=== PATIENT | female | born 1970 | race Caucasian/White ===

== ENCOUNTER 2024-02-05 15:57 | Emergency (ER) | payer MEDICARE, SELFPAY ==
[2024-02-05 15:58] VITALS: BP 133/84; PULSE 85; RESP 20; TEMP 36.8; O2SAT 95; BMI 30.9
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
--- NOTE | 2024-02-05 16:19 | PC.NURSE ---
@ 1600 Dr. Vaughn at bedside with Shea CHANDLER, Diaz Daniel RN, and Jerrod Purvis EMT. A social and political studies professor with [place] [employer] department also arrive to bedside
[2024-02-05 16:30] VITALS: BP 134/87; PULSE 80; O2SAT 96
[2024-02-05 16:36] LABS: Basophils # 0.1 K/mm3 (0-0.2); Basophils % 1.5 % (0.1-2.0); Eosinophils # 0.2 K/mm3 (0.0-0.4); Eosinophils % 3.4 % (0.1-12.0); Hematocrit 50.6 % (37.0-47.0); Hemoglobin 16.1 g/dL (12.2-16.2); Lymphocytes # 1.6 K/mm3 (0.7-4.5); Lymphocytes % 31.2 % (10-50); Mean Corpuscular HGB Conc 31.8 g/dL (31.8-35.4); Mean Corpuscular Volume 97.6 fl (81-99); Mean Platelet Volume 7.8 fl (7.4-10.4); Monocytes # 0.3 K/mm3 (0.1-1.0); Neutrophils % 58.9 % (37.0-80.0); Platelet Count 112 K/mm3 (142-424); Red Blood Count 5.18 M/mm3 (4.20-5.40); Red Cell Distribution Width 13.8 % (11.5-17.5); White Blood Count 5.1 K/mm3 (4.8-10.8)
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
[2024-02-05 16:44] LABS: Albumin Level 3.7 g/dl (3.5-5.0); Chloride 105 mmol/L (98-107); Potassium 3.4 mmoL/L (3.5-5.1); Sodium 139 mmol/L (136-145)
[2024-02-05 16:46] LABS: Blood Urea Nitrogen 9 mg/dl (7-17)
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
[2024-02-05 16:47] LABS: Alanine Aminotransferase 13 U/L (12-78); Albumin/Globulin Ratio 1.2 (1.1-1.8); Alkaline Phosphatase 88 U/L (38-126); Anion Gap 6.4 mEq/L (5-15); Aspartate Amino Transferase 21 U/L (14-36); Bilirubin,Total 0.6 mg/dl (0.2-1.3); Calcium 8.6 mg/dl (8.4-10.2); Carbon Dioxide 31 mmol/L (22.0-30.0); Creatinine Clearance Estimated 117 mL/min (50-200); Estimated Glomerular Filt Rate 87 ml/min (>60); GFR (African American) 105 ML/MIN (>60); Glucose 89 mg/dl (74-100); Lipase 85 U/L (23-300); Total Protein,Serum 6.7 g/dl (6.3-8.2)
[2024-02-05 16:48] LABS: Activated Partial Thrombo Time 27.1 seconds (22.8-30.6); INR 1.02 (0.9-1.1); Prothrombin Time 11.4 seconds (10.1-12.5)
--- NOTE | 2024-02-05 16:48 | PC.NURSE ---
Environmental Compliance Specialist and dental practitioner at bedside with pt
[2024-02-05 17:06] LABS: Microscopic, Urine URINE MICROSCOPIC (MICROSCOPIC)
[2024-02-05 17:08] LABS: Appearance,Urine CLEAR (Clear); Bilirubin,Urine Negative (Negative); Blood, Urine 2+ (Negative); Color,Urine YELLOW (Yellow); Glucose,Urine (UA) Negative (Negative); Ketones,Urine Negative (Negative); Leukocyte Esterase,Urine 2+ (Negative); Nitrate,Urine Negative (Negative); Protein,Urine Negative (Negative)
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
[2024-02-05 17:29] LABS: Bacteria,Urine 3+ /lpf; WBC,Urine 20-50 #/hpf (0-3)
[2024-02-05 17:30] VITALS: BP 167/90; PULSE 71; O2SAT 96
[2024-02-05] MEDS: CEFTRIAXONE SODIUM 2 GM in 0.9 % SODIUM CHLORIDE 100 ML IV (17:35)
[2024-02-05] MEDS: ONDANSETRON 4MG ODT 4 MG SL (17:35)
[2024-02-05] MEDS: DOXYCYCLINE HYCL 100 MG TABLET PO (17:36)
[2024-02-05] MEDS: metroNIDAZOLE 500 MG TABLET PO (17:36)
--- NOTE | 2024-02-05 17:46 | PC.NURSE ---
Miguelito Evangelista at bedside and present in the ER and advised to have SANE nurse come down to ER. steam table associate called and trina mccord and geovanna shemar on way down to ER
--- NOTE | 2024-02-05 18:00 | PC.NURSE ---
Hilary Doe RN and Rossana Winston RN at BS for [facility] exam
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
--- NOTE | 2024-02-05 19:48 | PC.NURSE ---
CHARANJIT nurse examiners are done at bedside, per ER MD patient is medically cleared and ready for discharge
[2024-02-05 19:59] VITALS: BP 145/96; PULSE 90; RESP 20; TEMP 36.7; O2SAT 97
[2024-02-06 13:32] LABS: HIV (1&2) Antibody Rapid NONREACTIVE (NONREACTIVE)
[2024-02-07 08:27] LABS: Hepatitis B Surface Antigen Negative (Negative)
[2024-02-07 21:08] LABS: Neisseria gonorrhoeae, NAA Negative (Negative)
[2024-02-18 12:35] LABS: Hepatitis C Antibody NON REACTIVE; Treponema pallidum Antibodies NON REACTIVE
== END 2024-02-05 20:10 | disposition home or self-care (01) ==
PROVIDERS: Emergency Provider Emergency Medicine
DX: T76.21XA Adult sexual abuse, suspected, initial encounter (principal); R10.2 Pelvic and perineal pain; N76.0 Acute vaginitis; F17.210 Nicotine dependence, cigarettes, uncomplicated
CPT/HCPCS: 80053; 81001; 83690; 85025; 85610; 85730; 86706; 86780; 87086; 87210; 87340; 87380; 87491; 87591; 96365; 99285; J0696; Q0162